=== PATIENT | male | born 1985 | race Caucasian/White ===

== ENCOUNTER 2017-03-09 13:21 | Emergency (ER) | payer SELFPAY ==
[~2017-03-09] VITALS: Ht 182.9 cm; Wt 93.9 kg
[2017-03-09 13:23] VITALS: BP 156/81
[2017-03-09] MEDS ORDERED: PENI250T57 PO (14:21)
== END 2017-03-09 14:52 | disposition home or self-care (01) ==
LOC: M ED 14:47
DX: K04.7 Periapical abscess without sinus (principal); J30.2 Other seasonal allergic rhinitis; F17.200 Nicotine dependence, unspecified, uncomplicated

== ENCOUNTER 2017-08-20 05:15 | Emergency (ER) | payer SELFPAY ==
[~2017-08-20] VITALS: Ht 182.9 cm; Wt 95.5 kg
[~2017-08-20 05:15] MED LIST: PENI250T57 PO
[2017-08-20] MEDS ORDERED: ALEV220T26 PO (05:29)
[2017-08-20 06:01] LABS: BASO % 0.3 % (0.0-1.0); EOS # 0.2 10^3/uL (0.0-0.50); EOS % 1.6 % (0.0-3.0); IMMATURE GRANULOCYTE % 0.3 % (0-0); LYMPH # 2.1 10^3/uL (1.5-6.5); LYMPH % 22.4 % (24.0-44.0); MEAN CORPUSCULAR HEMOGLOBIN 29.9 pg (27.0-33.0); MEAN CORPUSCULAR HGB CONC 34.8 g/dl (32.0-36.5); MONO # 1.1 10^3/uL (0.0-0.8); MONO % 11.1 % (0.0-5.0); NEUTROPHILS # 6.1 10^3/uL (1.8-7.7); NEUTROPHILS % 64.3 % (36.0-66.0); PLATELET COUNT, AUTOMATED 177 10^3/uL (150-450); WHITE BLOOD COUNT 9.5 10^3/uL (4.0-10.0)
[2017-08-20 06:21] LABS: ANION GAP 9 MEQ/L (8-16); BLOOD UREA NITROGEN 9 MG/DL (7-18); CALCIUM LEVEL 8.7 MG/DL (8.5-10.1); CARBON DIOXIDE LEVEL 24 MEQ/L (21-32); CHLORIDE LEVEL 109 MEQ/L (98-107); CREATININE FOR GFR 0.92 MG/DL (0.70-1.30); GLOMERULAR FILTRATION RATE > 60.0 (>60); GLUCOSE, FASTING 107 MG/DL (70-105); POTASSIUM SERUM 3.6 MEQ/L (3.5-5.1); SODIUM LEVEL 142 MEQ/L (136-145)
[2017-08-20 09:04] VITALS: BP 160/98
[2017-08-20] MEDS ORDERED: AMOX500C PO (09:12)
[2017-08-20] MEDS ORDERED: NORCOTAB PO (09:12)
[2017-08-20] MEDS ORDERED: NORCO, ANEXSIA 5/325MG TABLET (HYDROcodone/ACETAMINOPHEN) PO ONE (09:15)
[2017-08-20] MEDS ORDERED: AMOXICILLIN 500 MG CAP PO ONE (09:15)
== END 2017-08-20 09:18 | disposition home or self-care (01) ==
LOC: M ED 05:15
DX: K02.9 Dental caries, unspecified (principal); Z72.0 Tobacco use

== ENCOUNTER 2019-01-13 17:32 | Emergency (ER) | payer OTHER, SELFPAY ==
[~2019-01-13] VITALS: Ht 182.9 cm; Wt 100.0 kg
[2019-01-13 17:32] VITALS: BP 147/96
[~2019-01-13 17:32] MED LIST changes: +ALEV220T26 PO; +AMOX500C PO; +HYDR-3715 PO
[2019-01-13] MEDS ORDERED: DAYT1CAP9 PO (17:36)
[2019-01-13] MEDS ORDERED: CLAR10CA3 PO (19:21)
[2019-01-13] MEDS ORDERED: MUCI600T31 PO (19:21)
[2019-01-13] MEDS ORDERED: HYDR1CRE30 TOP (19:21)
[2019-01-13] MEDS ORDERED: AUGM875T28 PO (19:21)
[2019-01-13] MEDS ORDERED: AUGMENTIN 875 MG TAB PO ONE (19:30)
== END 2019-01-13 19:30 | disposition home or self-care (01) ==
LOC: M ED 17:32
DX: J01.90 Acute sinusitis, unspecified (principal); T14.8XXA Other injury of unspecified body region, initial encounter; W57.XXXA Bitten or stung by nonvenomous insect and other nonvenomous arthropods, initial encounter; Y92.89 Other specified places as the place of occurrence of the external cause; Z91.030 Bee allergy status; Z79.899 Other long term (current) drug therapy

== ENCOUNTER 2020-06-30 00:50 | Emergency (ER) | payer BC, OTHER ==
[~2020-06-30] VITALS: Ht 182.9 cm; Wt 104.0 kg
[~2020-06-30 00:50] MED LIST changes: +AUGM875T28 PO; +CLAR10CA3 PO; +DAYT1CAP9 PO; +HYDR1CRE30 TOP; +MUCI600T31 PO
[2020-06-30] MEDS ORDERED: IBUP80TA PO (00:59)
[2020-06-30] MEDS ORDERED: AUGM875T28 PO (01:48)
[2020-06-30] MEDS ORDERED: AUGMENTIN 875 MG TAB PO ONE (02:00)
[2020-06-30] MEDS ORDERED: ACETAMINOPHEN 500 MG TAB PO ONE (02:00)
[2020-06-30 02:08] VITALS: BP 145/98
== END 2020-06-30 02:10 | disposition home or self-care (01) ==
LOC: M ED 00:50
DX: K04.7 Periapical abscess without sinus (principal); K02.9 Dental caries, unspecified; K08.89 Other specified disorders of teeth and supporting structures; F17.200 Nicotine dependence, unspecified, uncomplicated; Z91.030 Bee allergy status

== ENCOUNTER 2020-12-30 01:57 | Emergency (ER) | payer BC ==
[~2020-12-30] VITALS: Ht 182.9 cm; Wt 103.7 kg
[~2020-12-30 01:57] MED LIST changes: +IBUP80TA PO
[2020-12-30] MEDS ORDERED: AUGMENTIN 875 MG TAB PO ONE (03:50)
[2020-12-30] MEDS ORDERED: KETOROLAC 30 MG/ML 1ML VIAL IM ONE (03:50)
[2020-12-30] MEDS ORDERED: KETO10TAB PO (03:56)
[2020-12-30] MEDS ORDERED: AUGM875T28 PO (03:56)
[2020-12-30 04:15] VITALS: BP 138/87
== END 2020-12-30 04:16 | disposition home or self-care (01) ==
LOC: M ED 01:57
DX: K02.9 Dental caries, unspecified (principal); F17.200 Nicotine dependence, unspecified, uncomplicated; Z79.899 Other long term (current) drug therapy; Z91.030 Bee allergy status
CPT/HCPCS: 96372; 99283; J1885

== ENCOUNTER 2024-10-16 19:27 | Emergency (ER) | payer MEDICAID, SELFPAY ==
[~2024-10-16] VITALS: Ht 180.3 cm; Wt 96.1 kg
[~2024-10-16 19:27] MED LIST changes: +KETO10TAB PO
[2024-10-16 23:00] VITALS: BP 132/96; TEMP 99.2; O2SAT 99
[2024-10-17] MEDS ORDERED: AMOX875T2 PO (00:25)
[2024-10-17] MEDS ORDERED: IBUP-1022 PO (00:25)
[2024-10-17] MEDS: ACETAMINOPHEN 325 MG TAB PO ONE (00:28)
[2024-10-17] MEDS: AUGMENTIN 875 MG TAB PO ONE (00:28)
[2024-10-17] MEDS: KETOROLAC 60MG 2ML VIAL IM ONE (00:29)
== END 2024-10-17 00:57 | disposition home or self-care (01) ==
LOC: M ED 19:27
DX: K04.7 Periapical abscess without sinus (principal); K02.9 Dental caries, unspecified; F17.200 Nicotine dependence, unspecified, uncomplicated; F10.10 Alcohol abuse, uncomplicated; Z91.030 Bee allergy status; Z79.2 Long term (current) use of antibiotics; Z79.1 Long term (current) use of non-steroidal anti-inflammatories (NSAID); Z79.899 Other long term (current) drug therapy
CPT/HCPCS: 96372; 99283; J1885